=== PATIENT | female | born 1950 | race Caucasian/White ===

== ENCOUNTER → 2016-09-19 | Outpatient (CLI) | payer OTHER ==
[~2016-09-19] VITALS: Ht 162.6 cm; Wt 102.1 kg
[~2016-09-19] MED LIST: AMLO10TA2 PO; ASPI325T24 PO; ATEN25TA PO; CALTTAB6 PO; GABA800T PO; HYDR25TAB PO; LIDOCAINE 2% INJ 100 MG/5 ML SDV (FOR ANES.) As Ordered ONE; NS 1,000 ML IV ONE; PAME50CA PO; POTA10TA16 PO; PROPOFOL 200 MG/20 ML VIAL As Ordered ONE; RANI150T PO; ROPI2TAB PO; TIZA2CAP3 PO; ZONI100C2 PO
--- NOTE | 2016-09-19 14:32 | ROOR ---
Patient Name: Tianna Shahid Procedure Date: 09/19/2016 1:59 PM Date of : 1950 Age: 65 Room: [facility] Gender: Female Note Status: Finalized Procedure: Colonoscopy Indications: High risk colon cancer surveillance: Personal history of colonic polyps Providers: Janusz Ornelas Jr, MD Referring MD: Dane Connors MD Requesting Provider: Medicines: Propofol per Anesthesia Complications: No immediate complications. Procedure: Pre-Anesthesia Assessment: - Prior to the procedure, a History and Physical was performed, and patient medications and allergies were reviewed. The patient is competent. The risks and benefits of the procedure and the sedation options and risks were discussed with the patient. All questions were answered and informed consent was obtained. Patient identification and proposed procedure were verified by the physician and the nurse in the pre-procedure area and in the procedure room. Mental Status Examination: alert and oriented. Airway Examination: normal oropharyngeal airway and neck mobility. Respiratory Examination: clear to auscultation. CV Examination: normal. ASA Grade Assessment: II - A patient with mild systemic disease. After reviewing the risks and benefits, the patient was deemed in satisfactory condition to undergo the procedure. The anesthesia plan was to use moderate sedation / analgesia (conscious sedation). Immediately prior to administration of medications, the patient was re-assessed for adequacy to receive sedatives. The heart rate, respiratory rate, oxygen saturations, blood pressure, adequacy of pulmonary ventilation, and response to care were monitored throughout the procedure. The physical status of the patient was re-assessed after the procedure. The Colonoscope was introduced through the anus and advanced to the cecum, identified by appendiceal orifice and ileocecal valve. The colonoscopy was performed without difficulty. The patient tolerated the procedure well. The quality of the bowel preparation was adequate and good. Findings: The rectum, recto-sigmoid colon, sigmoid colon, descending colon, transverse colon, ascending colon, cecum, appendiceal orifice and ileocecal valve appeared normal. Impression: - The rectum, recto-sigmoid colon, sigmoid colon, descending colon, transverse colon, ascending colon, cecum, appendiceal orifice and ileocecal valve are normal. - No specimens collected. Recommendation: - Discharge patient to home (ambulatory). - Repeat colonoscopy in 5 years for surveillance. Janusz Ornelas MD Janusz Ornelas Jr, MD 09/19/2016 2:31:38 PM This report has been signed electronically. Number of Addenda: 0 Note Initiated On: 09/19/2016 1:59 PM Estimated Blood Loss: Estimated blood loss: none.
[2016-09-19 15:01] VITALS: BP 150/90
== END | disposition home or self-care (01) ==
LOC: M OPP 11:57
PROVIDERS: ATTEND Surgery
DX: Z12.11 Encounter for screening for malignant neoplasm of colon (principal); Z86.010 Personal history of colon polyps; I10 Essential (primary) hypertension; E78.5 Hyperlipidemia, unspecified; G43.909 Migraine, unspecified, not intractable, without status migrainosus; G47.30 Sleep apnea, unspecified; E66.9 Obesity, unspecified; K21.9 Gastro-esophageal reflux disease without esophagitis; R06.02 Shortness of breath; R05 Cough; R06.2 Wheezing; R91.8 Other nonspecific abnormal finding of lung field; R94.2 Abnormal results of pulmonary function studies; M54.9 Dorsalgia, unspecified; Z88.8 Allergy status to other drugs, medicaments and biological substances; Z79.82 Long term (current) use of aspirin; Z79.899 Other long term (current) drug therapy; Z98.1 Arthrodesis status

== ENCOUNTER → 2017-01-29 | Outpatient (CLI) | payer MEDICARE, OTHER ==
[~2017-01-29] MED LIST changes: -LIDOCAINE 2% INJ 100 MG/5 ML SDV (FOR ANES.) As Ordered ONE; -NS 1,000 ML IV ONE; -PROPOFOL 200 MG/20 ML VIAL As Ordered ONE
--- NOTE | 2017-01-29 15:52 | REPMRS ---
Patient History The patient states she had a clinical breast exam in Patient is postmenopausal. No known family history of cancer. Took hormonal contraceptives for 6 years. Took unspecified hormones for 20 years. Digital Woman Screen Mammo: January 29, 2017 - Exam #: [id number] Bilateral CC and MLO view(s) were taken. Technologist: Laura Hamlin, Technologist Prior study comparison: December 17, 2013, bilateral bilat screen digital mammo, performed at [facility] ([facility]). December 11, 2012, bilateral bilat screen digital mammo, performed at [facility] ([facility]). December 11, 2011, bilateral bilat screen digital mammo, performed at [facility] ([facility]). FINDINGS: There are scattered fibroglandular densities. There has been no change in the appearance of the mammogram from the prior studies. There is a mild amount of scattered fibroglandular density which is fairly symmetric. There is no interval development of dominant mass, architectural distortion, or clustered microcalcification suggestive of malignancy. ASSESSMENT: BI-RADS/ACR category 1 mammogram. Negative. Recommendation Routine screening mammogram in 1 year (for women over age 40). This mammogram was interpreted with the aid of an FDA-approved computer-aided dectection system. Electronically Signed By: Joel Szymanski MD 01/29/17 7317
--- NOTE | 2017-01-31 13:39 | DEXA ---
AP SPINE L1 - L3 1.422 2.0 3.5 LT FEMUR TOTAL 1.087 0.6 1.8 RT FEMUR TOTAL 1.081 0.6 1.8 TOTAL BODY TOTAL OTHER COMMENTS: Normal bone densitometry of the spine and hips. The density of the spine has decreased 9.8% since initial exam on 03/2002. The spine density has increased 0.1% since the most recent exam on 04/2013. The density of the left hip has increased 2.7% since the initial exam on 03/2002. The density of the left hip has increased 4.8% since the most recent exam on 2013. The density of the right hip has increased 2.8% since the initial exam on 2002. The density of the right hip has increased 4.6% since the most recent exam on 2013. FOLLOW-UP: Recommendation for the next bone density exam: 5 years. EAMON
== END ==
LOC: M WHC 14:12
PROVIDERS: ATTEND Family Medicine
DX: Z12.31 Encounter for screening mammogram for malignant neoplasm of breast (principal); Z78.0 Asymptomatic menopausal state; Z79.3 Long term (current) use of hormonal contraceptives; Z13.820 Encounter for screening for osteoporosis
CPT/HCPCS: 77080; G0202

== ENCOUNTER → 2018-03-19 | Outpatient (CLI) | payer MEDICARE, OTHER ==
[~2018-03-19] MED LIST changes: -AMLO10TA2 PO; +AMLO10TA5 PO; -ASPI325T24 PO; +ASPI325T25 PO; -GABA800T PO; +GABA800T4 PO; +TIZA2CAP PO; -TIZA2CAP3 PO
--- NOTE | 2018-03-19 11:21 | REPMRS ---
Patient History The patient states she had a clinical breast exam in 01/18 Patient is postmenopausal. No known family history of cancer. Took hormonal contraceptives for 6 years. Took unspecified hormones for 20 years. Digital Woman Screen Mammo: March 19, 2018 - Exam #: [id number] Bilateral CC and MLO view(s) were taken. Technologist: Ivelisse Graff, Technologist Prior study comparison: January 29, 2017, digital woman screen mammo performed at [facility]. December 17, 2013, bilateral bilat screen digital mammo, performed at [facility] ([facility]). December 11, 2012, bilateral bilat screen digital mammo, performed at [facility] ([facility]). FINDINGS: There are scattered fibroglandular densities. There is a moderate amount of residual fibroglandular tissue which is fairly symmetric. There is no interval development of dominant mass, architectural distortion, or clustered microcalcification typical of malignancy. There has been no change in the appearance of the mammogram from the prior studies. 3-D tomosynthesis shows no additional findings. Assessment: BI-RADS/ACR category 1 mammogram. Negative. Recommendation Routine screening mammogram of both breasts in 1 year (for women over age 40). This patient's Lifetime Breast Cancer RIsk is estimated at 3.5 %. This mammogram was interpreted with the aid of an FDA-approved computer-aided dectection system. Electronically Signed By: Joel Szymanski MD 03/19/18 [id number]
== END ==
LOC: M WHC 09:49
PROVIDERS: ATTEND Nurse Practitioner Family
DX: Z12.31 Encounter for screening mammogram for malignant neoplasm of breast (principal)

== ENCOUNTER → 2019-04-14 | Outpatient (CLI) | payer MEDICARE, OTHER ==
[~2019-04-14] MED LIST changes: +ASPI-255 PO; -ASPI325T25 PO; -ROPI2TAB PO; +ROPI2TAB3 PO; +ZONI100C17 PO; -ZONI100C2 PO
--- NOTE | 2019-04-14 14:16 | REPMRS ---
Patient History The patient states she has not had a clinical breast exam in over a year. No known family history of cancer. Took hormonal contraceptives for 6 years. Took unspecified hormones for 20 years. Digital Woman Screen Mammo: April 14, 2019 - Exam #: [id number] Bilateral CC and MLO view(s) were taken. Technologist: Sharmila Sanchez, Technologist Prior study comparison: March 19, 2018, bilateral digital woman screen mammo performed at [facility]. January 29, 2017, digital woman screen mammo performed at [facility]. December 17, 2013, bilateral bilat screen digital mammo, performed at [facility] ([facility]). FINDINGS: There are scattered fibroglandular densities. There has been no change in the appearance of the mammogram from the prior studies. There is a mild amount of scattered fibroglandular density which is fairly symmetric. There is no interval development of dominant mass, architectural distortion, or grouped microcalcification suggestive of malignancy. 3-D tomosynthesis shows no additional findings. Assessment: BI-RADS/ACR category 1 mammogram. Negative Mammogram. Recommendation Routine screening mammogram of both breasts in 1 year (for women over age 40). This patient's Lifetime Breast Cancer Risk is estimated at 3.3 %. This mammogram was interpreted with the aid of an FDA-approved computer-aided dectection system. Electronically Signed By: Joel Szymanski MD 04/14/19 0431
== END ==
LOC: M WHC 10:42
PROVIDERS: ATTEND Nurse Practitioner Family
DX: Z12.31 Encounter for screening mammogram for malignant neoplasm of breast (principal); Z92.0 Personal history of contraception; Z92.29 Personal history of other drug therapy

== ENCOUNTER → 2019-09-13 | Outpatient (CLI) | payer MEDICARE, OTHER ==
[~2019-09-13] MED LIST changes: -AMLO10TA5 PO; +AMLO1TAB25 PO
--- NOTE | 2019-11-02 09:28 | DEXA ---
AP SPINE L1 - L4 1.348 1.2 2.9 LT FEMUR TOTAL 1.079 0.6 1.9 LT NECK 1.013 -0.2 1.4 RT FEMUR TOTAL 1.074 0.5 1.9 RT NECK 1.005 -0.2 1.4 TOTAL BODY TOTAL OTHER COMMENTS: Normal Bone Densitometry of the spine and hips. The decreased density of the spine does represent a significant change. The decreased density of the left hip does not represent a significant change. The decreased density of the right hip does not represent a significant change. The density of the spine has decreased 11.4% since the initial exam on 03/29/2002. The increased 7.9% since the most recent exam on 04/27/2004. The density of the left hip has increased 2.0% since the initial exam on 03/29/2002. The density of the left hip has decreased 0.7% since the most recent exam on 01/29/2017. The density of the right hip has increased 2.1% since the initial exam on 03/29/2002. The density of the right hip has decreased 0.6% since the most recent exam on 01/29/2017. FOLLOW-UP: Recommendation for the next bone density exam: 5 years. EAMON
== END ==
LOC: M WHC 12:36
PROVIDERS: ATTEND Nurse Practitioner Family
DX: Z78.0 Asymptomatic menopausal state (principal)

== ENCOUNTER → 2020-05-25 | Outpatient (CLI) | payer MEDICARE, OTHER ==
[~2020-05-25] MED LIST changes: +HYDR-3490 PO; -HYDR25TAB PO
--- NOTE | 2020-05-25 15:27 | REPMRS ---
Patient History The patient states she has not had a clinical breast exam in over a year. No known family history of cancer. Took hormonal contraceptives for 6 years. Took unspecified hormones for 20 years. Digital Woman Screen Mammo: May 25, 2020 - Exam #: [id number] Bilateral CC and MLO view(s) were taken. Technologist: Idania Francisco, Technologist Prior study comparison: April 14, 2019, bilateral digital woman screen mammo performed at [facility]. March 19, 2018, bilateral digital woman screen mammo performed at [facility]. January 29, 2017, digital woman screen mammo performed at [facility]. FINDINGS: There are scattered fibroglandular densities. The Volpara volumetric breast density category is:B. There has been no change in the appearance of the mammogram from the prior studies. There is a mild amount of scattered fibroglandular density which is fairly symmetric. There is no interval development of dominant mass, architectural distortion, or grouped microcalcification suggestive of malignancy. 3-D tomosynthesis shows no additional findings. Assessment: BI-RADS/ACR category 1 mammogram. Negative Mammogram. Recommendation Routine screening mammogram of both breasts in 1 year (for women over age 40). This patient's [facility] Lifetime Breast Cancer Risk is estimated at 3.1 %. This mammogram was interpreted with the aid of an FDA-approved computer-aided dectection system. Electronically Signed By: Joel Szymanski MD 05/25/20 3549
== END ==
LOC: M WHC 14:02
PROVIDERS: ATTEND Nurse Practitioner Family
DX: Z12.31 Encounter for screening mammogram for malignant neoplasm of breast (principal); Z92.0 Personal history of contraception; Z79.890 Hormone replacement therapy

== ENCOUNTER → 2020-11-27 | Outpatient (CLI) | payer MEDICARE, OTHER ==
--- NOTE | 2020-11-27 16:20 | REP ---
INDICATION: PAIN LT LEG, R/O DVT. COMPARISON: None. TECHNIQUE: Multiple ultrasonographic images of the deep venous structures of the left lower extremity were obtained from the inguinal ligament to the ankle. Venous compression techniques, color doppler imaging, and augmentation techniques were also obtained where appropriate. As per the ACR guidelines the anterior tibial vein can not be effectively evaluated. Only compression techniques in the calf on the peroneal and posterior tibial veins was attempted/performed. FINDINGS: There is no abnormal echogenic material seen within any of the visualized deep venous structures that would suggest acute thrombosis. Coaptation is unremarkable throughout. Doppler interrogation shows an expected response to respiratory variability and augmentation in the thigh. Compression techniques in the calf were unobtainable. The color flow images show what appears to be a normal vascular pattern throughout the thigh. IMPRESSION: There is no ultrasonographic evidence of deep venous thrombosis involving any of the visualized deep venous structures of the left lower extremity as described above. Due to technical parameters calf vein DVT can not be ruled out. <Electronically signed by Shan Estrella > 11/27/20 [id number]
== END ==
LOC: M RAD 15:48
PROVIDERS: ATTEND Physician Assistant Surgical
DX: M79.605 Pain in left leg (principal)

== ENCOUNTER → 2020-11-28 | Outpatient (CLI) | payer MEDICARE, OTHER ==
--- NOTE | 2020-11-28 12:14 | REP ---
INDICATION: LT HIP OA, EVAL FOR OCCULT FX, AVN. COMPARISON: Comparison CT study January 06, 2015. No comparison radiographs. TECHNIQUE: Helical scanning is acquired and 3 mm axial images re-formatted. Coronal and sagittal MPR images are provided. FINDINGS: Digital senior packaging engineer radiograph demonstrates transpedicle screw and posterior element fusion hardware across the L5-S1 level. There is advanced bilateral hip joint osteoarthritis visible on the senior packaging engineer view with subcortical cyst formation and joint space narrowing. Axial and MPR images of the left hip confirm this with obliteration of the weight-bearing surface of the joint space in the left hip. There is extensive subcortical cyst formation on both sides with some sclerosis and spur formation. There is flattening of the superior surface of the femoral head and coronal multiplanar re-formation images demonstrate a crescent-shaped radiolucency through the superior surface of the femoral head consistent with a osteochondral defect. this defect measures 1.3 cm in right to left dimension. it is less confidently seen on sagittal MPR images. No other evidence of avascular necrosis is seen. Periarticular soft tissues are unremarkable. The largest arthritis associated cyst is seen in the posterior acetabulum measuring 1.0 x [address] images showed minimal superior acetabular spurring and subcortical cyst formation. The changes have progressed substantially since the 2014 study. IMPRESSION: Advanced bilateral hip osteoarthritis with cysts extensive subcortical cyst formation. There is an area of slight flattening and subchondral radiolucency in the weight-bearing surface of the femoral head on the left. <Electronically signed by Joel Szymanski > 11/28/20 1216
== END ==
LOC: M RAD 11:29
PROVIDERS: ATTEND Physician Assistant Surgical
DX: M16.12 Unilateral primary osteoarthritis, left hip (principal)

== ENCOUNTER → 2021-04-18 | Outpatient (REF) | payer MEDICARE, OTHER ==
[~2021-04-18] MED LIST changes: +POTA-149 PO; -POTA10TA16 PO
[2021-04-20 14:01] LABS: ALBUMIN 4.23 GM/DL (3.29-5.55); ALBUMIN % 60.4 % (55.8-66.1); ALPHA-1-GLOBULIN % 4.9 % (2.9-4.9); ALPHA-1-GLOBULINS 0.34 GM/DL (0.17-0.41); ALPHA-2-GLOBULINS 0.76 GM/DL (0.42-0.99); ALPHA-2-GLOBULINS % 10.9 % (7.1-11.8); BETA-1-GLOBULINS 0.49 GM/DL (0.28-0.60); BETA-2-GLOBULINS 0.35 GM/DL (0.19-0.55); GAMMA GLOBULIN % 11.8 % (11.1-18.8)
[2021-04-20 14:02] LABS: GAMMA GLOBULINS 0.83 GM/DL (0.65-1.58)
== END ==
LOC: M LAB REF 16:45
PROVIDERS: ATTEND Internal Medicine Nephrology
DX: I12.9 Hypertensive chronic kidney disease with stage 1 through stage 4 chronic kidney disease, or unspecified chronic kidney disease (principal); N18.31 Chronic kidney disease, stage 3a; R82.81 Pyuria

== ENCOUNTER → 2021-07-23 | Outpatient (CLI) | payer MEDICARE, OTHER ==
[~2021-07-23] MED LIST changes: -ZONI100C17 PO; +ZONI100C67 PO
== END ==
LOC: M WHC 10:06
PROVIDERS: ATTEND Nurse Practitioner Family
DX: Z12.31 Encounter for screening mammogram for malignant neoplasm of breast (principal); Z78.0 Asymptomatic menopausal state

== ENCOUNTER → 2021-10-29 | Outpatient (CLI) | payer MEDICARE, OTHER ==
[2021-10-29 11:26] LABS: HEMATOCRIT 44.5 % (36.0-47.0); HEMOGLOBIN 14.2 g/dl (12.0-15.5); MEAN CORPUSCULAR HEMOGLOBIN 31.1 pg (27.0-33.0); MEAN CORPUSCULAR HGB CONC 31.9 g/dl (32.0-36.5); MEAN CORPUSCULAR VOLUME 97.4 fl (80.0-96.0); PLATELET COUNT, AUTOMATED 220 10^3/uL (150-450); RED BLOOD COUNT 4.57 10^6/uL (4.00-5.40); WHITE BLOOD COUNT 7.5 10^3/uL (4.0-10.0)
[2021-10-29 11:38] LABS: INR 0.94; PROTHROMBIN TIME 12.9 SECONDS (12.7-14.5)
[2021-10-29 12:10] LABS: ERYTHROCYTE SEDIMENTATION RATE 10 mm/hr (0-30)
[2021-10-29 12:17] LABS: ALT/SGPT 9 U/L (12-78); BILIRUBIN,TOTAL 0.4 MG/DL (0.2-1.0); BLOOD UREA NITROGEN 18 MG/DL (7-18); CARBON DIOXIDE LEVEL 27 MEQ/L (21-32); CHLORIDE LEVEL 109 MEQ/L (98-107); CREATININE FOR GFR 0.97 MG/DL (0.55-1.30); GLOMERULAR FILTRATION RATE > 60.0 (>39); GLUCOSE, FASTING 98 MG/DL (70-100); SODIUM LEVEL 141 MEQ/L (136-145)
== END ==
LOC: M RAD 09:54
PROVIDERS: ATTEND Orthopaedic Surgery
DX: M16.12 Unilateral primary osteoarthritis, left hip (principal)

== ENCOUNTER → 2022-01-16 | Outpatient (CLI) | payer MEDICARE, OTHER ==
[~2022-01-16] MED LIST changes: +ISOVUE-300 61% 50ML VIAL ONE; +LIDOCAINE 1% MDV 20ML VIAL ONE; +methylPREDNISolone SUSP 40MG/ML 1ML VIAL (DEPO MEDROL) ONE
== END ==
LOC: M PLAIMG 14:53
PROVIDERS: ATTEND Physician Assistant
DX: M16.11 Unilateral primary osteoarthritis, right hip (principal)
CPT/HCPCS: 20610; 76000; J1030; Q9967

== ENCOUNTER → 2022-11-15 | Outpatient (CLI) | payer MEDICARE, OTHER ==
[~2022-11-15] MED LIST changes: -ISOVUE-300 61% 50ML VIAL ONE; -LIDOCAINE 1% MDV 20ML VIAL ONE; -ROPI2TAB3 PO; +ROPI2TAB46 PO; -methylPREDNISolone SUSP 40MG/ML 1ML VIAL (DEPO MEDROL) ONE
== END ==
LOC: M WHC 13:02
PROVIDERS: ATTEND Nurse Practitioner Family
DX: Z12.31 Encounter for screening mammogram for malignant neoplasm of breast (principal)

== ENCOUNTER → 2023-11-19 | Outpatient (CLI) | payer MEDICARE, OTHER ==
[~2023-11-19] MED LIST changes: +GABA-1635 PO; -GABA800T4 PO
== END ==
LOC: M WHC 10:13
PROVIDERS: ATTEND Nurse Practitioner Family
DX: Z12.31 Encounter for screening mammogram for malignant neoplasm of breast (principal)